=== PATIENT | male | born 1990 | race African-American/Black ===

== ENCOUNTER 2020-06-09 12:40 | Emergency (ER) | payer OTHER, SELFPAY ==
[2020-06-09 12:53] VITALS: BP 131/81; PULSE 81; RESP 16; TEMP 36.2; O2SAT 99
[2020-06-09] MEDS: TETANUS,DIPHTHERIA,AC PERTUSSIS ADULT (0.5 ML) BOOSTRIX IM (13:16)
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
== END 2020-06-09 13:33 | disposition home or self-care (01) ==
PROVIDERS: Emergency Provider Emergency Medicine
DX: S01.01XA Laceration without foreign body of scalp, initial encounter (principal); Y00.XXXA Assault by blunt object, initial encounter; Z23 Encounter for immunization
CPT/HCPCS: 12001; 90471; 90715; 99282

== ENCOUNTER 2022-01-01 21:54 | Emergency (ER) | payer OTHER, SELFPAY ==
[2022-01-01 22:14] VITALS: BP 128/86; PULSE 85; RESP 18; TEMP 36.4; O2SAT 99
--- NOTE | 2022-01-01 22:38 | ED.EAR ---
HPI - Ear Problem General Chief complaint: Ear Stated complaint: FB right ear Time Seen by Provider: 01/01/22 22:25 Source: patient Mode of arrival: ambulatory Limitations: no limitations History of Present Illness HPI Narrative: This is a 31-year-old male that presents to the emergency department for decreased hearing noted yesterday in the right ear. No other associated symptoms. Denies fever, pain or abnormal drainage. Related Data Home Medications Medication Instructions Recorded Confirmed No Home Medications 06/09/20 06/09/20 Allergies Allergy/AdvReac Type Severity Reaction Status Date / Time No Known Allergies Allergy Verified 06/09/20 12:56 Review of Systems Review of Systems: CONSTITUTIONAL: Denies fever ENT: Denies otalgia. All systems reviewed & are unremarkable except as noted in HPI and below PMFSH Past Medical History Medical History (Updated 01/02/22 @ 00:00 by Mansoor Lubin) Healthy adult male Surgical History Surgical History (Updated 06/09/20 @ 13:17 by Luis Manuel Churchill MD) No history of previous surgery Social History Social History (Updated 06/09/20 @ 13:17 by Luis Manuel Churchill MD) Alcohol intake: current Exam Narrative: GENERAL: Well-appearing, well-nourished, and in no acute distress. HEAD: Normocephalic, atraumatic. EYES: EOMI. ENT: Bilateral cerumen impaction NECK: Supple. No adenopathy or masses. CHEST: No respiratory distress. HEART: Regular rate EXTREMITIES: Normal range of motion. No edema. SKIN: Warm, dry, no rash. NEURO: No focal deficits. Alert and oriented x3. PSYCH: Normal mood and affect Course Vital Signs Vital signs: Vital Signs Temperature 97.6 F 01/01/22 22:14 Pulse Rate 85 01/01/22 22:14 Respiratory Rate 18 01/01/22 22:14 Blood Pressure 128/86 01/01/22 22:14 Pulse Oximetry 99 01/01/22 22:14 Oxygen Delivery Room Air 01/01/22 22:14 Temperature 97.6 F 01/01/22 22:14 Pulse Rate 85 01/01/22 22:14 Respiratory Rate 18 01/01/22 22:14 Blood Pressure 128/86 01/01/22 22:14 Pulse Oximetry 99 01/01/22 22:14 Oxygen Delivery Room Air 01/01/22 22:14 Procedures Ear Wax Removal Both Ears: Ear Wax Removal Date: 01/01/22 Ear Wax Removal Time: 23:15 Results: Re-examined: cerumen removed completely TM Examination: TM(s) intact, normal appearance Ear Canal Exam: atraumatic Patient Tolerated Procedure: well and no complications Complications: no problems Technique: ear canal irrigated and ear canal curetted Medical Decision Making MDM Narrative Medical decision making narrative: Patient presents to the emergency department for decreased hearing noted out of the right ear. Noted to have bilateral cerumen impaction on exam. Patient's ears were irrigated and wax manually removed with curette. Patient reports relief of symptoms. External auditory canals and TMs are without concerning findings after removal of wax. He was instructed to follow-up with primary care doctor as needed. He was given warnings to return to the ER Vital Signs Vital Signs: Vital Signs Temperature 97.6 F 01/01/22 22:14 Pulse Rate 85 01/01/22 22:14 Respiratory Rate 18 01/01/22 22:14 Blood Pressure 128/86 01/01/22 22:14 Pulse Oximetry 99 01/01/22 22:14 Oxygen Delivery Room Air 01/01/22 22:14 Temperature 97.6 F 01/01/22 22:14 Pulse Rate 85 01/01/22 22:14 Respiratory Rate 18 01/01/22 22:14 Blood Pressure 128/86 01/01/22 22:14 Pulse Oximetry 99 01/01/22 22:14 Oxygen Delivery Room Air 01/01/22 22:14 Critical Care Time Critical Care Time Critical Care Time: No Discharge Plan Discharge Clinical Impression: Bilateral impacted cerumen Patient Disposition: Home, Self-Care Condition: Stable Additional Instructions: Return to the ER if you experience fever, abnormal drainage from your ear, pain, or any other symptoms that
== END 2022-01-01 23:42 | disposition home or self-care (01) ==
PROVIDERS: Emergency Provider General Practice
DX: H61.23 Impacted cerumen, bilateral (principal)
CPT/HCPCS: 69210; 99282; A9270